=== PATIENT | female | born 1985 | race Caucasian/White ===

== ENCOUNTER 2017-04-01 08:49 | Emergency (ER) | payer OTHER ==
[~2017-04-01] VITALS: Ht 162.6 cm; Wt 54.0 kg
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
[2017-04-01] MEDS ORDERED: LORAZEPAM 1 MG TABLET ONE ×2 (09:13→09:24)
--- NOTE | 2017-04-01 09:15 | NUR ---
PATIENT MEDICATED PER MD ORDERS, TAKEN TO CT VIA STRETCHER.
[2017-04-01] MEDS ORDERED: LORAZEPAM 1 MG TABLET PO ONE (09:30)
--- NOTE | 2017-04-01 09:51 | NUR ---
PT MEDICALLY CLEARED FOR DETENTION BY DR. CARPENTER. [facility] in stable condition. Written and verbal after care instructions given. Patient verbalizes understanding of instruction. PT AMBULATED TO THE BATHROOM AND THEN AMBULATED OUT WITH A STEADY GAIT. VSS.
[2017-04-01 09:52] VITALS: BP 110/77
== END 2017-04-01 09:53 ==
LOC: ER 08:53
DX: S09.8XXA Other specified injuries of head, initial encounter (principal); F13.239 Sedative, hypnotic or anxiolytic dependence with withdrawal, unspecified; F41.9 Anxiety disorder, unspecified; Y04.8XXA Assault by other bodily force, initial encounter; Y93.89 Activity, other specified; Y92.89 Other specified places as the place of occurrence of the external cause; Y99.8 Other external cause status
CPT/HCPCS: 70450; 99284; A4606; Z7610